=== PATIENT | female | born 1985 | race American Indian/Alaskan Native ===

== ENCOUNTER 2021-03-12 00:05 | Observation (INO) | payer OTHER ==
[2021-03-12] MEDS ORDERED: SODIUM CHLORIDE 0.9% 1000 ML 1,000 ML IV ONE (00:07)
--- NOTE | 2021-03-12 00:11 | Emergency Department Report ---
ED Altered Mental Status HPI - General Chief Complaint: Overdose Stated Complaint: AMS PUI?: No Time Seen by Provider: 03/12/21 00:07 Source: police, EMS Mode of arrival: Stretcher Limitations: Altered Mental Status, Physical Limitation - History of Present Illness Initial Comments: Patient is a 35-year-old female that presents emergency room with altered mental status. Patient come from the [facility]. Patient has a gifts officer with her at bedside. Patient found altered in the [facility]. Patient had a urine drug screen in the [facility] and it was positive for marijuana, benzos, alcohol. Patient also took a sleeping pill. Patient brought in by EMS. Report received from EMS. Patient is minimally responsive. MD Complaint: altered mental status, decreased responsiveness -: Sudden Severity: severe - Related Data Home Medications Medication Instructions Recorded Confirmed Last Taken Atomoxetine HCl [Strattera] 5 mg PO QDAY 03/12/21 03/12/21 03/10/21 Allergies Allergy/AdvReac Type Severity Reaction Status Date / Time No Known Allergies Allergy Verified 03/12/21 00:35 ED Review of Systems ROS: Stated complaint: AMS Other details as noted in HPI ED Past Medical Hx - Past Medical History Previous Medical History?: No - Surgical History Past Surgical History?: No - Family History Family history: no significant - Social History Smoking Status: Unknown if ever smoked Substance Use Type: Alcohol, Marijuana, Other - Medications Home Medications: Home Medications Medication Instructions Recorded Confirmed Last Taken Type Atomoxetine HCl [Strattera] 5 mg PO QDAY 03/12/21 03/12/21 03/10/21 History ED Physical Exam - General General appearance: alert, in no apparent distress - Head Head exam: Present: atraumatic, normocephalic - Eye Eye exam: Present: normal appearance - ENT ENT exam: Present: mucous membranes moist - Neck Neck exam: Present: normal inspection - Respiratory Respiratory exam: Present: normal lung sounds bilaterally. Absent: respiratory distress - Cardiovascular Cardiovascular Exam: Present: regular rate, normal rhythm. Absent: systolic murmur, diastolic murmur, rubs, gallop - GI/Abdominal GI/Abdominal exam: Present: soft, normal bowel sounds - Rectal Rectal exam: Present: deferred - Extremities Exam Extremities exam: Present: normal inspection - Back Exam Back exam: Present: normal inspection - Neurological Exam Neurological exam: Present: alert, oriented X3 - Expanded Neurological Exam Expanded Best Eye Response (Carlton): (2) open to pain Best Motor Response (Carlton): (5) localizes to pain Best Verbal Response ([place]): (2) incomprehsible sounds [place] Total: 9 - Psychiatric Psychiatric exam: Present: normal affect, normal mood - Skin Skin exam: Present: warm, dry, intact, normal color. Absent: rash - Level of Consciousness 1a. Level of Consciousness: alert/keenly responsive - LOC Questions 1b. LOC Questions: answers 1 question correctly - LOC Command 1c. LOC Commands: performs 1 task correctly - Best Gaze 2. Best Gaze: normal - Visual 3. Visual: no visual loss - Facial Palsy 4. Facial Palsy: normal symmetrical movement - Motor Arm 5a. Motor Arm Left: some gravity effort 5b. Motor Arm Right: some gravity effort - Motor Leg 6a. Motor Leg Left: some gravity effort 6b. Motor Leg Right: some gravity effort - Limb Ataxia 7. Limb Ataxia: absent - Sensory 8. Sensory: normal - Best Language 9. Best Language: no aphasia - Dysarthria 10. Dysarthria: normal - Extinction and Inattention 11. Extinction/Inattention: no abnormality - Scoring Total Score: 10 Stroke Severity: Moderate Stroke ED Course Vital Signs 03/12/21 03/12/21 03/12/21 00:28 01:01 02:01 Temperature 97 F L Pulse Rate 70 61 56 L Respiratory 12 15 23 Rate Blood Pressure 104/76 104/69 Blood Pressure 104/67 [Left] O2 Sat by Pulse 100 100 100 Oximetry 03/12/21 03/12/21 03/12/21 03:01 04:01 05:01 Temperature Pulse Rate 52 L 66 57 L Respiratory 23 15 21 Rate Blood Pressure 127/89 130/82 Blood Pressure [Left] O2 Sat by Pulse 100 100 100 Oximetry 03/12/21 05:11 Temperature Pulse Rate 57 L Respiratory 21 Rate Blood Pressure 99/69 Blood Pressure [Left] O2 Sat by Pulse 100 Oximetry - Reevaluation(s) Reevaluation #1: Patient is more arousable. Patient answering questions appropriately. 03/12/21 01:06 Reevaluation #2: Patient is easier to arouse. Patient oriented x2. Patient is oriented to person and place. Vital signs stable. 03/12/21 02:26 Reevaluation #3: Patient is still lethargic. Patient is lethargic but arousable with lots of stimuli. Patient to be admitted to the hospital service. 03/12/21 03:48 - Consultations Consultation #1: Hospitalist consulted for admission. Hospitalist to admit patient. 03/12/21 03:48 - Lab Data Result diagrams: 03/13/21 04:22 03/13/21 04:22 Lab Results 03/12/21 03/12/21 03/12/21 Range/Units 00:27 00:27 00:27 WBC 6.6 (4.5-11.0) K/mm3 RBC 4.88 (3.65-5.03) M/mm3 Hgb 13.5 (10.1-14.3) gm/dl Hct 40.3 (30.3-42.9) % MCV 83 (79-97) fl MCH 28 (28-32) pg MCHC 34 (30-34) % RDW 13.2 (13.2-15.2) % Plt Count 256 (140-440) K/mm3 Lymph % (Auto) 35.6 H (13.4-35.0) % [place] % (Auto) 5.9 (0.0-7.3) % Eos % (Auto) 2.3 (0.0-4.3) % Baso % (Auto) 0.7 (0.0-1.8) % Lymph # (Auto) 2.3 (1.2-5.4) K/mm3 [place] # (Auto) 0.4 (0.0-0.8) K/mm3 Eos # (Auto) 0.1 (0.0-0.4) K/mm3 Baso # (Auto) 0.0 (0.0-0.1) K/mm3 Seg Neutrophils % 55.5 (40.0-70.0) % Seg Neutrophils # 3.6 (1.8-7.7) K/mm3 Sodium 136 L (137-145) mmol/L Potassium 4.0 (3.6-5.0) mmol/L Chloride 101.3 (98-107) mmol/L Carbon Dioxide 26 (22-30) mmol/L Anion Gap 13 mmol/L BUN 8 (7-17) mg/dL Creatinine 0.7 (0.6-1.2) mg/dL Estimated GFR > 60 ml/min BUN/Creatinine Ratio 11 % Glucose 82 (65-100) mg/dL Lactic Acid 1.10 (0.7-2.0) mmol/L Calcium 9.0 (8.4-10.2) mg/dL Total Bilirubin 0.20 (0.1-1.2) mg/dL AST 18 (5-40) units/L ALT 12 (7-56) units/L Alkaline Phosphatase 47 (35-129) units/L Ammonia (25-60) umol/L Troponin T < 0.010 (0.00-0.029) ng/mL Total Protein 7.2 (6.3-8.2) g/dL Albumin 4.3 (3.9-5) g/dL Albumin/Globulin Ratio 1.5 % Urine Color (Yellow) Urine Turbidity (Clear) Urine pH (5.0-7.0) Ur Specific [place] (1.003-1.030) Urine Protein (Negative) mg/dL Urine Glucose (UA) (Negative) mg/dL Urine Ketones (Negative) mg/dL Urine Blood (Negative) Urine Nitrite (Negative) Urine Bilirubin (Negative) Urine Urobilinogen (<2.0) mg/dL Ur Leukocyte Esterase (Negative) Urine WBC (Auto) (0.0-6.0) /HPF Urine RBC (Auto) (0.0-6.0) /HPF U Epithel Cells (Auto) (0-13.0) /HPF Salicylates (2.8-20.0) mg/dL Urine Opiates Screen Urine Methadone Screen Acetaminophen (10.0-30.0) ug/mL Ur Barbiturates Screen Ur Phencyclidine Scrn Ur Amphetamines Screen U Benzodiazepines Scrn Urine Cocaine Screen U Marijuana (THC) Screen Drugs of Abuse Note Plasma/Serum Alcohol (0-0.07) % 03/12/21 03/12/21 03/12/21 Range/Units 00:27 00:27 00:27 WBC (4.5-11.0) K/mm3 RBC (3.65-5.03) M/mm3 Hgb (10.1-14.3) gm/dl Hct (30.3-42.9) % MCV (79-97) fl MCH (28-32) pg MCHC (30-34) % RDW (13.2-15.2) % Plt Count (140-440) K/mm3 Lymph % (Auto) (13.4-35.0) % [place] % (Auto) (0.0-7.3) % Eos % (Auto) (0.0-4.3) % Baso % (Auto) (0.0-1.8) % Lymph # (Auto) (1.2-5.4) K/mm3 [place] # (Auto) (0.0-0.8) K/mm3 Eos # (Auto) (0.0-0.4) K/mm3 Baso # (Auto) (0.0-0.1) K/mm3 Seg Neutrophils % (40.0-70.0) % Seg Neutrophils # (1.8-7.7) K/mm3 Sodium (137-145) mmol/L Potassium (3.6-5.0) mmol/L Chloride (98-107) mmol/L Carbon Dioxide (22-30) mmol/L Anion Gap mmol/L BUN (7-17) mg/dL Creatinine (0.6-1.2) mg/dL Estimated GFR ml/min BUN/Creatinine Ratio % Glucose (65-100) mg/dL Lactic Acid (0.7-2.0) mmol/L Calcium (8.4-10.2) mg/dL Total Bilirubin (0.1-1.2) mg/dL AST (5-40) units/L ALT (7-56) units/L Alkaline Phosphatase (35-129) units/L Ammonia 47.0 (25-60) umol/L Troponin T (0.00-0.029) ng/mL Total Protein (6.3-8.2) g/dL Albumin (3.9-5) g/dL Albumin/Globulin Ratio % Urine Color (Yellow) Urine Turbidity (Clear) Urine pH (5.0-7.0) Ur Specific [place] (1.003-1.030) Urine Protein (Negative) mg/dL Urine Glucose (UA) (Negative) mg/dL Urine Ketones (Negative) mg/dL Urine Blood (Negative) Urine Nitrite (Negative) Urine Bilirubin (Negative) Urine Urobilinogen (<2.0) mg/dL Ur Leukocyte Esterase (Negative) Urine WBC (Auto) (0.0-6.0) /HPF Urine RBC (Auto) (0.0-6.0) /HPF U Epithel Cells (Auto) (0-13.0) /HPF Salicylates < 0.3 L (2.8-20.0) mg/dL Urine Opiates Screen Urine Methadone Screen Acetaminophen 5.0 L (10.0-30.0) ug/mL Ur Barbiturates Screen Ur Phencyclidine Scrn Ur Amphetamines Screen U Benzodiazepines Scrn Urine Cocaine Screen U Marijuana (THC) Screen Drugs of Abuse Note Plasma/Serum Alcohol (0-0.07) % 03/12/21 03/12/21 03/12/21 Range/Units 00:27 02:19 02:19 WBC (4.5-11.0) K/mm3 RBC (3.65-5.03) M/mm3 Hgb (10.1-14.3) gm/dl Hct (30.3-42.9) % MCV (79-97) fl MCH (28-32) pg MCHC (30-34) % RDW (13.2-15.2) % Plt Count (140-440) K/mm3 Lymph % (Auto) (13.4-35.0) % [place] % (Auto) (0.0-7.3) % Eos % (Auto) (0.0-4.3) % Baso % (Auto) (0.0-1.8) % Lymph # (Auto) (1.2-5.4) K/mm3 [place] # (Auto) (0.0-0.8) K/mm3 Eos # (Auto) (0.0-0.4) K/mm3 Baso # (Auto) (0.0-0.1) K/mm3 Seg Neutrophils % (40.0-70.0) % Seg Neutrophils # (1.8-7.7) K/mm3 Sodium (137-145) mmol/L Potassium (3.6-5.0) mmol/L Chloride (98-107) mmol/L Carbon Dioxide (22-30) mmol/L Anion Gap mmol/L BUN (7-17) mg/dL Creatinine (0.6-1.2) mg/dL Estimated GFR ml/min BUN/Creatinine Ratio % Glucose (65-100) mg/dL Lactic Acid (0.7-2.0) mmol/L Calcium (8.4-10.2) mg/dL Total Bilirubin (0.1-1.2) mg/dL AST (5-40) units/L ALT (7-56) units/L Alkaline Phosphatase (35-129) units/L Ammonia (25-60) umol/L Troponin T (0.00-0.029) ng/mL Total Protein (6.3-8.2) g/dL Albumin (3.9-5) g/dL Albumin/Globulin Ratio % Urine Color Straw (Yellow) Urine Turbidity Clear (Clear) Urine pH 7.0 (5.0-7.0) Ur Specific [place] 1.006 (1.003-1.030) Urine Protein <15 mg/dl (Negative) mg/dL Urine Glucose (UA) Neg (Negative) mg/dL Urine Ketones Neg (Negative) mg/dL Urine Blood Neg (Negative) Urine Nitrite Neg (Negative) Urine Bilirubin Neg (Negative) Urine Urobilinogen < 2.0 (<2.0) mg/dL Ur Leukocyte Esterase Neg (Negative) Urine WBC (Auto) 1.0 (0.0-6.0) /HPF Urine RBC (Auto) 1.0 (0.0-6.0) /HPF U Epithel Cells (Auto) 2.0 (0-13.0) /HPF Salicylates (2.8-20.0) mg/dL Urine Opiates Screen Negative Urine Methadone Screen Negative Acetaminophen (10.0-30.0) ug/mL Ur Barbiturates Screen Negative Ur Phencyclidine Scrn Negative Ur Amphetamines Screen Negative U Benzodiazepines Scrn Positive Urine Cocaine Screen Negative U Marijuana (THC) Screen Negative Drugs of Abuse Note Disclamer Plasma/Serum Alcohol < 0.01 (0-0.07) % - EKG Data -: EKG Interpreted by In EKG shows normal: sinus rhythm, axis, intervals, QRS complexes, ST-T waves Rate: bradycardia - Radiology Data Radiology results: report reviewed CT HEAD WITHOUT CONTRAST INDICATION / CLINICAL INFORMATION: Altered Mental Status. TECHNIQUE: All CT scans at this location are performed using CT dose reduction for ALARA by means of automated exposure control. COMPARISON: None available. FINDINGS: No acute intracranial hemorrhage. Ventricles are normal in size without midline shift or mass effect. No extra-axial fluid collection is seen. ADDITIONAL FINDINGS: None. IMPRESSION: 1. No acute intracranial abnormality. - Medical Decision Making Patient is a 35-year-old female that presents emergency room with altered mental status and benzo overdose. Patient had labs done which were essentially unremarkable except for a positive UDS. Patient had a head CT for altered mental status. Patient's head CT was negative for acute findings. Patient given IV fluids. Patient monitored for multiple hours and continued to be lethargic. P atient admitted to the hospital service for evaluation treatment. Critical care time documented due to the multiple reassessments, prolonged time at the bedside, interpretation of diagnostics and labs. - Differential Diagnosis Overdose, altered mental status, lethargy, Critical Care Time: Yes Critical care time in (mins) excluding proc time.: 35 Critical care attestation.: If time is entered above; I have spent that time in minutes in the direct care of this critically ill patient, excluding procedure time. Critical Care Time: 35 minutes ED Disposition Clinical Impression: Unresponsive, Acute encephalopathy Overdose Qualifiers: Encounter type: initial encounter Injury intent: undetermined intent Qualified Code(s): T50.904A - Poisoning by unspecified drugs, medicaments and biological substances, undetermined, initial encounter Altered mental status Qualifiers: Altered mental status type: unspecified Qualified Code(s): R41.82 - Altered mental status, unspecified Disposition: DC-09 OP ADMIT IP TO THIS HOSP Is pt being admited?: Yes Does the pt Need Aspirin: No Condition: Good Time of Disposition: 03:47
[2021-03-12 00:37] LABS: Basophils % (Auto) 0.7 % (0.0-1.8); Eosinophils # (Auto) 0.1 K/mm3 (0.0-0.4); Eosinophils % (Auto) 2.3 % (0.0-4.3); Hematocrit 40.3 % (30.3-42.9); Hemoglobin 13.5 gm/dl (10.1-14.3); Lymphocytes # (Auto) 2.3 K/mm3 (1.2-5.4); Lymphocytes % (Auto) 35.6 % (13.4-35.0); Mean Corpuscular HGB Conc 34 % (30-34); Mean Corpuscular Volume 83 fl (79-97); Monocytes # (Auto) 0.4 K/mm3 (0.0-0.8); Monocytes % (Auto) 5.9 % (0.0-7.3); Platelet Count 256 K/mm3 (140-440); Red Blood Count 4.88 M/mm3 (3.65-5.03); Red Cell Distribution Width 13.2 % (13.2-15.2)
--- NOTE | 2021-03-12 00:52 | Cat Scan Report ---
CT HEAD WITHOUT CONTRAST INDICATION / CLINICAL INFORMATION: Altered Mental Status. TECHNIQUE: All CT scans at this location are performed using CT dose reduction for ALARA by means of automated e xposure control. COMPARISON: None available. FINDINGS: No acute intracranial hemorrhage. Ventricles are normal in size without midline shift or mass effect. No extra-axial fluid collection is seen. ADDITIONAL FINDINGS: None. IMPRESSION: 1. No acute intracranial abnormality. Signer Name: Damien Ocampo MD Signed: 03/12/2021 12:48 AM Workstation Name: [id number]
[2021-03-12 01:01] LABS: Alanine Aminotransferase 12 units/L (7-56); Albumin 4.3 g/dL (3.9-5); Blood Urea Nitrogen 8 mg/dL (7-17); Hemolysis Index 13
[2021-03-12 01:07] LABS: BUN/Creatinine Ratio 11
[2021-03-12] MEDS ORDERED: NALOXONE 2 MG/2 ML INJ ONE (02:03)
[2021-03-12 02:26] LABS: Bilirubin,Urine NEG (Negative); Blood,Urine NEG (Negative); Color,Urine Straw (Yellow); Protein,Urine <15 mg/dL mg/dL (Negative); Urobilinogen,Urine < 2.0 mg/dL (<2.0)
[2021-03-12 02:34] LABS: Amphetamine Screen,Urine Negative; Cannabinoid Screen,Urine Negative; Cocaine Screen,Urine Negative; Methadone Screen,Urine Negative; Opiate Screen,Urine Negative
[2021-03-12 02:45] LABS: Benzodiazepines Screen,Urine Positive
--- NOTE | 2021-03-12 04:16 | History and Physical Report ---
History of Present Illness Date of examination: 03/12/21 Date of admission: 03/12/21 03:47 Chief complaint: Altered Mental status History of present illness: Patient is a 35-year-old female that presents emergency room with altered mental status. [facility]. Patient has a staff nuclear weapons officer with her at bedside. Patient found altered in the [facility]. Patient had a urine drug screen in the [facility] and it was positive for marijuana, benzos, alcohol. Patient also took a sleeping pill. Patient brought in by EMS. Report received from EMS. Patient is minimally responsive. ED work-up WBC 6.6, hemoglobin 13.5, platelets 256, sodium 136, potassium 4.0, checks CT of the head showed no acute finding. Patient seen in the ED at bedside, officers seen at bedside -patient is from [facility]. Patient is lethargic easy to arouse, open her eyes on painful stimuli. Patient is not in acute distress. I reviewed the patient medical record, medication administration and vital signs- no acute finding. Patient is admitted on observation. Patient is positive for benzo on urine drug screen. Past History Past Medical History: other (hx of drug use) Past Surgical History: No surgical history (pt has AMS to give hx) Social history: smoking (street drug use) Family history: no significant family history Medications and Allergies Allergies Allergy/AdvReac Type Severity Reaction Status Date / Time No Known Allergies Allergy Verified 03/12/21 00:35 Review of Systems Constitutional: lethargy Ears, nose, mouth and throat: no epistaxis Gastrointestinal: no melena Integumentary: no sores Neurological: change in mentation, confusion, no head injury Psychiatric: anxiety, depression, confusion, no hallucinations Hematologic/Lymphatic: no easy bruising, no easy bleeding Allergic/Immunologic: no urticaria, no allergic rhinitis Exam - Constitutional Vitals: Temp Pulse Resp BP Pulse Ox 97 F L 52 L 23 127/89 100 03/12/21 00:28 03/12/21 03:01 03/12/21 03:01 03/12/21 03:01 03/12/21 03:01 General appearance: Present: no acute distress, well-nourished - EENT Eyes: Present: PERRL ENT: hearing intact, clear oral mucosa - Neck Neck: Present: supple, normal ROM - Respiratory Respiratory effort: normal Respiratory: bilateral: CTA - Cardiovascular Heart Sounds: Present: S1 & S2. Absent: rub, click - Extremities Extremities: pulses symmetrical, No edema Peripheral Pulses: within normal limits - Abdominal General gastrointestinal: Present: soft, non-tender, non-distended, normal bowel sounds Female genitourinary: Present: normal - Integumentary Integumentary: Present: clear, warm, dry - Musculoskeletal Musculoskeletal: gait normal, strength equal bilaterally - Psychiatric Psychiatric: other (lethargic from Benzo overdose but arousable) - Neurologic Neurologic: CNII-XII intact, moves all extremities - Allied Health Allied health notes reviewed: nursing HEART Score - HEART Score Troponin: Troponin T < 0.010 ng/mL (0.00-0.029) 03/12/21 00:27 Results - Labs CBC & Chem 7: 03/12/21 00:27 03/12/21 00:27 Labs: Abnormal lab results 03/12/21 03/12/21 03/12/21 Range/Units 00:27 00:27 00:27 Lymph % (Auto) 35.6 H (13.4-35.0) % Sodium 136 L (137-145) mmol/L Salicylates < 0.3 L (2.8-20.0) mg/dL Acetaminophen (10.0-30.0) ug/mL 03/12/21 Range/Units 00:27 Lymph % (Auto) (13.4-35.0) % Sodium (137-145) mmol/L Salicylates (2.8-20.0) mg/dL Acetaminophen 5.0 L (10.0-30.0) ug/mL Assessment and Plan - Patient Problems (1) Acute metabolic encephalopathy Current Visit: Yes Status: Acute Plan to address problem: Most likely 2/[address] of the head is negative Patient very lethargic, but opens eye with pain/tactile stimuli (2) Overdose Current Visit: Yes Status: Acute Qualifiers: Encounter type: initial encounter Injury intent: undetermined intent Qualified Code(s): T50.904A - Poisoning by unspecified drugs, medicaments and biological substances, undetermined, initial encounter Plan to address problem: IV hydration Monitor vital signs CT is negative for acute finding Will licensed mental health counselor patient to avoid drug use when patient is awake and mentally stable. (3) DVT prophylaxis Current Visit: Yes Status: Acute Plan to address problem: Lovenox (4) Full code status Current Visit: Yes Status: Acute Plan to address problem: patient is full code
[2021-03-12] MEDS ORDERED: METOCLOPRAMIDE 10 MG/2 ML INJ IV PRN (05:52)
[2021-03-12] MEDS ORDERED: ONDANSETRON 4 MG/2 ML INJ IV PRN (05:52)
[2021-03-12] MEDS ORDERED: SODIUM CHLORIDE 0.9% 1000 ML 1,000 ML IV SCH (06:00)
[2021-03-12] MEDS: D5W/0.9% NACL 1,000 ML IV SCH ×2 (08:10→20:05)
--- NOTE | 2021-03-12 09:27 | Event Note ---
Date: 03/12/21 Patient admitted as an overdose, but hemodynamically stable. Not intubated. Unsure of reason for consult as currently on pulm issues as well. If patient deteriorates, I am librarian special collections for ICU and would be glad to help. Otherwise, cancelling consult.
[2021-03-12] MEDS ORDERED: ENOXAPARIN 40 MG/0.4 ML INJ SUB-Q SCH (10:00)
[2021-03-12] MEDS ORDERED: ENOXAPARIN 30 MG/0.3 ML INJ SUB-Q SCH (10:00)
[2021-03-12] MEDS: FAMOTIDINE 20 MG/2 ML INJ IV SCH ×2 (10:19→21:15)
--- NOTE | 2021-03-12 11:59 | Event Note ---
<JOHNGUILLE KatyaRosemary - Last Filed: 03/12/21 11:52> This is a 35-year-old female with former drug abuse and social ETOH use who presented to the emergency department with altered mental status from [facility] via EMS after being found with AMS within the facility and a UDS was positive for marijuana, benzos, alcohol on 03/12. Patient reportedly took a sleeping pill. Work-up in the emergency department revealed slight hyponatremia but otherwise normal labs and her UDS was positive for benzodiazepines only. CT head showed no acute intracranial processes. She was admitted to the hospitalist service with consults to [facility]. 03/12: Patient examined at bedside and patient does not have any suicidal homicidal ideation. Patient states that she was in [facility] for probation violation and states that she has "a weekend release papers". Officer at bedside. She awakens to verbal stimuli and is able to answer questions, oriented x3 and passes bedside swallow evaluation. However RN states that patient is still lethargic. Patient will be transferred to the floor. A/P This is a 35-year-old female admitted with benzodiazepine overdose -CCM consulted, appreciate recommendations -N.p.o. diet until passes bedside swallow evaluation which she did -Reassessed in the afternoon to start a regular diet (pt remains lethargic) -Patient is currently on D5 half-normal saline -Accu-Cheks every 6 while n.p.o. -Monitor for withdrawal from benzodiazepines -D51/2NS while npo -card services specialist consult pending DVT/GI prophylaxis: Lovenox subcu, SCDs to bilateral actions while in bed, PPI Disposition: Transfer to floor Lines: PIV <YASH NICOLE - Last Filed: 03/12/21 14:38> Patient seen and examined with nurse practitioner, agree with assessment plan as outlined as above. Patient talking and lucid during our conversation, yet she continues to be very lethargic. Will monitor patient overnight to evaluate for any respiratory distress. Patient should be stable to be transferred to the floor over the next 24 hours.
[2021-03-13 04:53] LABS: Basophils % (Auto) 0.7 % (0.0-1.8); Eosinophils # (Auto) 0.1 K/mm3 (0.0-0.4); Eosinophils % (Auto) 2.5 % (0.0-4.3); Hematocrit 36.9 % (30.3-42.9); Hemoglobin 12.3 gm/dl (10.1-14.3); Lymphocytes # (Auto) 2.4 K/mm3 (1.2-5.4); Lymphocytes % (Auto) 45.4 % (13.4-35.0); Mean Corpuscular HGB Conc 33 % (30-34); Mean Corpuscular Volume 85 fl (79-97); Monocytes # (Auto) 0.4 K/mm3 (0.0-0.8); Monocytes % (Auto) 6.9 % (0.0-7.3); Platelet Count 236 K/mm3 (140-440); Red Blood Count 4.36 M/mm3 (3.65-5.03); Red Cell Distribution Width 13.2 % (13.2-15.2)
[2021-03-13 05:13] LABS: Blood Urea Nitrogen 6 mg/dL (7-17); Calcium 7.9 mg/dL (8.4-10.2); Hemolysis Index 6
[2021-03-13 05:19] LABS: BUN/Creatinine Ratio 9
[2021-03-13] MEDS ORDERED: FAMOTIDINE 20 MG TAB PO SCH (10:00)
--- NOTE | 2021-03-13 11:15 | Discharge Summary ---
Providers - Providers Date of Admission: 03/12/21 03:47 Date of discharge: 03/13/20 Attending physician: YASH NICOLE MD 03/12/21 11:59 Consult to Case Management [CONS] Routine Services Needed at Discharge: Other Additional Physician Instructions: best drug abuse, resources for cessation [facility] Condition: Good Hospital course: This is a 35-year-old female with former drug abuse and social ETOH use who presented to the emergency department with altered mental status from skilled nursing via EMS after being found with AMS within the facility and a UDS was positive for marijuana, benzos, alcohol on 03/12. Patient reportedly took a sleeping pill. Work-up in the emergency department revealed slight hyponatremia but otherwise normal labs and her UDS was positive for benzodiazepines only. CT head showed no acute intracranial processes. She was admitted to the hospitalist service with consults to [facility]. 03/12: Patient examined at bedside and patient does not have any suicidal homicidal ideation. Patient states that she was in skilled nursing for probation violation and states that she has "a weekend release papers". Officer at bedside. She awakens to verbal stimuli and is able to answer questions, oriented x3 and passes bedside swallow evaluation. However RN states that patient is still lethargic. Patient will be transferred to the floor. 03/13/2021: Patient seen and examined, patient is doing well, ate all her breakfast, no issues noted overnight. Patient did have some bradycardia, however leads were not properly on the patient at the time. Reviewed additional EKGs, patient has first-degree heart block with extended VA interval but asymptomatic. I educated the patient on this and she is aware. Advised patient not to take any drugs due to this heart abnormality. Patient is stable for discharge. Disposition: DC-01 TO HOME OR SELFCARE Final Discharge Diagnosis (Prints w/discharge instructions): Benzodiazepine overdose. First-degree heart block. Chronic bradycardia Time spent for discharge: 25 minutes Core Measure Documentation - Palliative Care Palliative Care/ Comfort Measures: Not Applicable - Core Measures Any of the following diagnoses?: none Exam - Physical Exam Narrative exam: General appearance: no acute distress, well-nourished EENT: PERRL, EOM intact, hearing intact, clear oral mucosa Neck: Present: supple, normal ROM Respiratory: bilateral CTA, negative: rales, rhonchi, wheezing Cardiovascular: Slow rate/rhythm, Normal S1 & S2. No gallop, rub Extremities: no ischemia, No edema, normal temperature, normal color, Full ROM Abdominal: soft, no tenderness, non-distended, normal bowel sounds Integumentary: Present: clear, warm, dry no wounds, no erythema noted Psychiatric: appropriate mood/affect, intact judgment & insight Neurologic: CNII-XII intact, moves all extremities, no sensory or motor abnormalities - Constitutional Vitals: Temp Pulse Resp BP Pulse Ox 98.2 F 42 L 22 112/75 100 03/13/21 08:00 03/13/21 06:55 03/13/21 06:55 03/13/21 06:55 03/13/21 06:55 Plan Activity: no restrictions Diet: regular Plan of Treatment: Please avoid taking any illicit drugs or using nonprescription drugs. You are diagnosed with first-degree heart block. If you are having any chest pain or shortness of breath, please return to the ED immediately. Follow up with: MELISSA JEAN-BAPTISTE MD [Primary Care Provider] - 7 Days
[2021-03-13 12:09] VITALS: BP 122/70
--- NOTE | 2021-03-17 09:38 | Electrocardiograph Report ---
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
--- NOTE | 2021-03-17 09:40 | Electrocardiograph Report ---
[facility] Test Date: 2021-03-12 Test Time: 22:35:48 Pat Name: CADE CARDOSO Department: Room: A267 1 Gender: F Director Center: [id number] : 1985 Requested By: COLIN HERBERT Order Number: [id number] Reading MD: Sam Mclain Measurements Intervals [place] Rate: 52 P: 53 ND: 248 QRS: 38 QRSD: 96 T: 46 QT: 452 QTc: 423 Interpretive Statements Sinus bradycardia Prolonged [place] interval No previous ECG available for comparison Electronically Signed On 03-17-2021 9:40:06 EDT by Sam Mclain
== END 2021-03-13 13:30 | disposition home or self-care (01) ==
LOC: ED 00:05 → EEVIPCON 03:47 → IMCU 03:47
PROVIDERS: ADMIT Hospitalist; ATTEND Family Medicine
DX: G93.41 Metabolic encephalopathy (principal); R41.82 Altered mental status, unspecified; T42.4X4A Poisoning by benzodiazepines, undetermined, initial encounter; Z79.899 Other long term (current) drug therapy
CPT/HCPCS: 36415; 70450; 80048; 80053; 80307; 81001; 82140; 84484; 85025; 93005; 96361; 96372; 96374; 96376; 99291; G0378; J1650; J7030; J7042; 80320; G0480; J2310

== ENCOUNTER 2021-12-05 21:06 | Emergency (ER) | payer MEDICARE, OTHER ==
[2021-12-05 21:20] VITALS: BP 110/70
[2021-12-05] MEDS ORDERED: LIDOCAINE (1%) 10 MG/1 ML VIAL 20 ML MDV INFILTRATI ONE (21:28)
[2021-12-05] MEDS ORDERED: cephALEXin 500 MG CAP PO ONE (21:28)
[2021-12-05] MEDS ORDERED: traMADol 50 MG TAB PO ONE (21:29)
--- NOTE | 2021-12-05 22:19 | Emergency Department Report ---
ED General Adult HPI - General Chief complaint: Neck Pain/Injury Stated complaint: PAINFUL BUMP ON BACK OF NECK Time Seen by Provider: 12/05/21 21:27 Source: patient Mode of arrival: Ambulatory Limitations: No Limitations - History of Present Illness Initial comments: Patient 36-year-old female who presents with abscess to posterior neck x3 days. States purulent drainage upon manual expression at home. Now states pain 4/10 to palpation. There is no fevers no chills no rigors. Patient denies history of diabetes there is no other symptoms. Pain is rated at 4/10 at this time Severity scale (0 -10): 9 - Related Data Home Medications Medication Instructions Recorded Confirmed Last Taken Atomoxetine HCl [Strattera] 5 mg PO QDAY 03/12/21 03/12/21 03/10/21 Previous Rx's Medication Instructions Recorded Last Taken Type cephALEXin [Keflex] 500 mg PO Q8HR 7 Days #21 cap 12/05/21 Unknown Rx traMADoL [Ultram] 50 mg PO Q6HR PRN #12 tablet 12/05/21 Unknown Rx Allergies Allergy/AdvReac Type Severity Reaction Status Date / Time walnut Allergy Swelling Verified 12/05/21 21:21 ED Review of Systems ROS: Stated complaint: PAINFUL BUMP ON BACK OF NECK Other details as noted in HPI Constitutional: denies: chills, fever Eyes: denies: eye pain, eye discharge, vision change ENT: denies: ear pain, throat pain Respiratory: orthopnea. denies: cough, shortness of breath, wheezing Cardiovascular: denies: chest pain, palpitations Endocrine: no symptoms reported Gastrointestinal: denies: abdominal pain, nausea, vomiting, diarrhea Genitourinary: denies: urgency, dysuria, discharge Musculoskeletal: denies: back pain, joint swelling, arthralgia Skin: other (Abscess posterior neck) Neurological: denies: headache, weakness, paresthesias Psychiatric: denies: anxiety, depression Hematological/Lymphatic: denies: easy bleeding, easy bruising ED Past Medical Hx - Past Medical History Previous Medical History?: No Hx Congestive Heart Failure: No Hx Diabetes: No Hx Asthma: No Hx COPD: No - Surgical History Past Surgical History?: No - Social History Smoking Status: Never Smoker Substance Use Type: Alcohol - Medications Home Medications: Home Medications Medication Instructions Recorded Confirmed Last Taken Type Atomoxetine HCl [Strattera] 5 mg PO QDAY 03/12/21 03/12/21 03/10/21 History cephALEXin [Keflex] 500 mg PO Q8HR 7 Days #21 cap 12/05/21 Unknown Rx traMADoL [Ultram] 50 mg PO Q6HR PRN #12 tablet 12/05/21 Unknown Rx ED Physical Exam - General Limitations: No Limitations General appearance: alert, in no apparent distress - Head Head exam: Present: atraumatic, normocephalic - Eye Eye exam: Present: normal appearance, EOMI Pupils: Present: normal accommodation - ENT ENT exam: Present: mucous membranes moist - Neck Neck exam: Present: normal inspection, tenderness (Posterior neck abscess 1 x 1 cm erythema fluctuant no drainage noted at this time.), full ROM. Absent: meningismus, lymphadenopathy, thyromegaly - Respiratory Respiratory exam: Present: normal lung sounds bilaterally. Absent: respiratory distress, wheezes, stridor, chest wall tenderness - Cardiovascular Cardiovascular Exam: Present: regular rate, normal rhythm, normal heart sounds. Absent: systolic murmur, diastolic murmur, rubs, gallop - GI/Abdominal GI/Abdominal exam: Present: soft, normal bowel sounds. Absent: distended, tenderness, guarding, rebound, rigid, bruit, hernia - Rectal Rectal exam: Present: deferred - Extremities Exam Extremities exam: Present: normal inspection, full ROM, normal capillary refill. Absent: tenderness - Back Exam Back exam: Present: normal inspection, full ROM. Absent: tenderness - Neurological Exam Neurological exam: Present: alert, oriented X3, CN II-XII intact, normal gait - Psychiatric Psychiatric exam: Present: normal affect, normal mood - Skin Skin exam: Present: warm, dry, intact, normal color. Absent: rash ED Course Vital Signs 12/05/21 12/05/21 21:18 21:43 Temperature 97.9 F Pulse Rate 82 Respiratory 18 16 Rate Blood Pressure 110/70 [Left] O2 Sat by Pulse 100 Oximetry - I & D Posterior Neck Type of Procedure: Simple Site: 1 x 1 cm fluctuant abscess posterior neck superficial, generalized erythema Blade Size: 18-gauge needle I & D Procedure: betadine prep, sterile drapes applied, sterile dressing applied Progress: One by one posterior neck abscess cleaned with Betadine solution, anesthesia 1% lidocaine via 2 cc anesthesia is achieved. Incision with 18-gauge needle and syringe aspirated approximately 3 cc purulent output core was expressed. Site irrigated with 10 cc sterile saline. No dressing applied all bleeders controlled patient tolerated procedure with minimal distress. Patient given wound care instructions including follow-up primary care doctor in 2 days for wound check. Symptoms of infection. Antibiotic regimen. Patient verbalized understanding of same. ED Medical Decision Making - Medical Decision Making Patient for I&D of posterior neck abscess see procedure note. No dressing is intact all bleeding is controlled patient tolerated procedure with minimal distress. Patient DC'd home in stable condition at this time with prescriptions, will follow primary care in 2 days for wound check. Will return to emergency department should symptoms worsen. Patient DC'd home in stable condition at this time. Critical care attestation.: If time is entered above; I have spent that time in minutes in the direct care of this critically ill patient, excluding procedure time. ED Disposition Clinical Impression: Abscess of neck Disposition: 01 HOME / SELF CARE / HOMELESS Is pt being admited?: No Does the pt Need Aspirin: No Condition: Stable Instructions: Skin Abscess, [id number], Incision and Drainage, Care After Additional Instructions: Take medications as prescribed, follow-up with your doctor in 2 days for wound check. Wound care as directed. Return to emergency department should symptoms worsen. Prescriptions: cephALEXin [Keflex] 500 mg PO Q8HR 7 Days #21 cap traMADoL [Ultram] 50 mg PO Q6HR PRN #12 tablet PRN Reason: Pain Referrals: MARLENE RAMESH MD [Staff Physician] - 3-5 Days Forms: Work/School Release Form(ED) Time of Disposition: 22:24
== END 2021-12-05 23:09 | disposition home or self-care (01) ==
LOC: ED 21:06
DX: L02.11 Cutaneous abscess of neck (principal); F10.20 Alcohol dependence, uncomplicated
CPT/HCPCS: 10060; 99282; J3490